=== PATIENT | male | born 1945 | race Caucasian/White ===

== ENCOUNTER 2019-12-10 13:11 | Inpatient (IN) | payer MEDICARE, MEDICAID ==
[~2019-12-10] VITALS: Ht 167.6 cm; Wt 63.0 kg
[~2019-12-10 13:11] MED LIST: ACAR50TA2 PO; ASPI-728 PO; BENA10TA77 PO; CARV12 PO; FERR-89 PO; HYDR25TA84 PO; NIFE30TA91 PO; OMEP10 PO; SIMV-260 PO; SITA1TAB6 PO; SUCR1TAB PO; TRIA1CAP13 PO
[2019-12-10] MEDS ORDERED: GABA-533 PO (13:26)
[2019-12-10] MEDS ORDERED: DULA0.75 SQ (13:26)
[2019-12-10] MEDS ORDERED: LISI-662 PO (13:26)
[2019-12-10] MEDS ORDERED: METF-960 PO (13:26)
[2019-12-10] MEDS ORDERED: SODIUM CHLORIDE 0.9% 1,000 ML IV ONE ×2 (13:45→15:45)
[2019-12-10] MEDS ORDERED: GABA-1181 PO (14:10)
[2019-12-10] MEDS ORDERED: TRIA1CAP2 PO (14:10)
[2019-12-10 14:17] LABS: BASOPHILS % (AUTO) 0.1 % (0.0-2.0); EOSINOPHILS % (AUTO) 0 % (1.0-6.0); HEMATOCRIT 33.9 % (41-53); HEMOGLOBIN 11.4 g/dL (13.5-17.5); LYMPHOCYTES # (AUTO) 0.6 K/uL (1.0-4.8); LYMPHOCYTES % (AUTO) 4.3 % (22.0-44.0); MEAN CORPUSCULAR HGB CONC 33.6 G/dL (31.0-37.0); MEAN CORPUSCULAR VOLUME 92 fL (80-100); MONOCYTES # (AUTO) 0.6 K/uL (0.1-1.0); MONOCYTES % (AUTO) 4.2 % (2.0-9.0); NEUTROPHILS # (AUTO) 12.3 K/uL (1.8-7.7); PLATELET COUNT (AUTO) 308 K/uL (150-450); RED BLOOD CELL COUNT(AUTO) 3.68 MIL/uL (4.50-5.90); RED CELL DISTRIBUTION WIDTH 14.5 % (11.5-14.5)
[2019-12-10 14:20] LABS: NEUTROPHILS % (AUTO) 91.4 % (40.0-70.0)
[2019-12-10] MEDS ORDERED: FAMOTIDINE 10 MG/ML 2 ML VIAL IVP ONE (14:30)
[2019-12-10] MEDS ORDERED: ONDANSETRON HCL 4 MG/2 ML VIAL IVP ONE (14:30)
[2019-12-10 14:35] LABS: ALBUMIN 2.8 g/dL (3.4-5.0); BILIRUBIN,TOTAL 1.3 mg/dL (0.1-1.0); CALCIUM, TOTAL 8.4 mg/dL (8.8-10.5); CREATININE 3.82 mg/dL (0.60-1.30); POTASSIUM 4.5 mmol/L (3.5-5.1); TOTAL PROTEIN, SERUM 7.2 g/dL (6.4-8.2)
[2019-12-10] MEDS ORDERED: MetroNIDAZOLE 500 MG/NACL 100 ML IV ONE (15:00)
[2019-12-10] MEDS ORDERED: ONDANSETRON HCL 4 MG/2 ML VIAL IVP PRN ×2 (15:30→15:45)
[2019-12-10] MEDS ORDERED: BISACODYL 10 MG RECTAL RECTAL SUPPOSITORY PR PRN (15:30)
[2019-12-10] MEDS ORDERED: SODIUM CHLORIDE 3% 500 ML IV ONE (15:30)
[2019-12-10] MEDS ORDERED: MORPHINE SULFATE 2 MG/ML SYRINGE IVP PRN (15:30)
[2019-12-10] MEDS ORDERED: PIPERACILLIN/TAZO 3.375 GM/D5W 50 ML IV ONE (15:30)
[2019-12-10] MEDS ORDERED: MAGNESIUM HYDROXIDE SUSPENSION 30 ML UDCUP PO PRN (15:30)
[2019-12-10] MEDS ORDERED: ACETAMINOPHEN 325 MG TABLET PO PRN ×2 (15:30→15:45)
[2019-12-10] MEDS ORDERED: ZOLPIDEM TARTRATE 5 MG TABLET PO PRN (15:30)
[2019-12-10] MEDS ORDERED: DEXTROSE 50%-WATER 25 GM/50 ML SYRINGE IVP PRN (15:30)
[2019-12-10] MEDS ORDERED: HYDROCODONE/ACETAMINOPHEN 5-325 MG TABLET PO PRN (15:30)
[2019-12-10] MEDS ORDERED: 0.9% SODIUM CHLORIDE 10 ML SYRINGE IVP PRN (15:45)
[2019-12-10 16:31] LABS: ALBUMIN 2.5 g/dL (3.4-5.0); BILIRUBIN,TOTAL 1.4 mg/dL (0.1-1.0); CALCIUM, TOTAL 7.8 mg/dL (8.8-10.5); CREATININE 3.64 mg/dL (0.60-1.30); POTASSIUM 4.1 mmol/L (3.5-5.1); TOTAL PROTEIN, SERUM 6.2 g/dL (6.4-8.2)
[2019-12-10] MEDS ORDERED: VANCOMYCIN HCL 1 GM/D5% WATER 200 ML IV ONE (17:00)
[2019-12-10] MEDS: HEPARIN SODIUM,PORCINE 5,000 UNITS/ML VIAL SQ SCH (17:51)
[2019-12-10] MEDS ORDERED: SODIUM CHLORIDE 0.9% 500 ML IV ONE (18:15)
[2019-12-10] MEDS: DOCUSATE SODIUM 100 MG CAPSULE PO SCH (21:00)
[2019-12-10 21:49] LABS: ALBUMIN 2.2 g/dL (3.4-5.0); BILIRUBIN,TOTAL 1.1 mg/dL (0.1-1.0); CALCIUM, TOTAL 7.2 mg/dL (8.8-10.5); CREATININE 3.33 mg/dL (0.60-1.30); POTASSIUM 3.8 mmol/L (3.5-5.1); TOTAL PROTEIN, SERUM 5.5 g/dL (6.4-8.2)
[2019-12-11] MEDS: PIPERACILLIN SODIUM/TAZOBACTAM 2.25 GM in DEXTROSE 5%-WATER 50 ML IV SCH ×3 (02:58→23:16)
[2019-12-11 06:31] LABS: BASOPHILS % (AUTO) 0.2 % (0.0-2.0); EOSINOPHILS % (AUTO) 0.6 % (1.0-6.0); HEMATOCRIT 31.8 % (41-53); LYMPHOCYTES # (AUTO) 0.5 K/uL (1.0-4.8); LYMPHOCYTES % (AUTO) 6.9 % (22.0-44.0); MEAN CORPUSCULAR HEMOGLOBIN 31.8 pg (26.0-34.0); MEAN CORPUSCULAR HGB CONC 34.5 G/dL (31.0-37.0); MEAN CORPUSCULAR VOLUME 92 fL (80-100); MONOCYTES # (AUTO) 0.6 K/uL (0.1-1.0); MONOCYTES % (AUTO) 7.7 % (2.0-9.0); NEUTROPHILS # (AUTO) 6.4 K/uL (1.8-7.7); NEUTROPHILS % (AUTO) 84.6 % (40.0-70.0); PLATELET COUNT (AUTO) 256 K/uL (150-450); RED BLOOD CELL COUNT(AUTO) 3.45 MIL/uL (4.50-5.90); RED CELL DISTRIBUTION WIDTH 14.5 % (11.5-14.5)
[2019-12-11 06:34] LABS: GLUCOSE,POINT OF CARE 136 MG/DL (70-110)
[2019-12-11 06:42] LABS: CALCIUM, TOTAL 7.4 mg/dL (8.8-10.5); CREATININE 2.89 mg/dL (0.60-1.30); POTASSIUM 3.8 mmol/L (3.5-5.1)
[2019-12-11] MEDS: HEPARIN SODIUM,PORCINE 5,000 UNITS/ML VIAL SQ SCH ×2 (08:11)
[2019-12-11] MEDS: SIMVASTATIN 20 MG TABLET PO SCH (09:00)
[2019-12-11] MEDS: PANTOPRAZOLE SODIUM 40 MG DR TABLET PO SCH (09:00)
[2019-12-11] MEDS: DOCUSATE SODIUM 100 MG CAPSULE PO SCH ×2 (09:00→21:18)
[2019-12-11] MEDS: ASPIRIN 81 MG CHEWABLE TABLET PO SCH (09:00)
[2019-12-11 11:39] LABS: CREATININE 2.77 mg/dL (0.60-1.30); POTASSIUM 4.4 mmol/L (3.5-5.1)
[2019-12-11] MEDS ORDERED: SODIUM CHLORIDE 0.9% 1,000 ML ONE (13:08)
[2019-12-11] MEDS ORDERED: IOHEXOL 240 MG/ML 20 ML VIAL ONE (16:10)
[2019-12-11] MEDS ORDERED: FentaNYL CITRATE-PF 100 MCG/2 ML VIAL ONE (16:23)
[2019-12-11] MEDS: FentaNYL CITRATE-PF 100 MCG/2 ML VIAL IVP PRN ×2 (16:25→16:39)
[2019-12-11 19:05] VITALS: BP 136/67
[2019-12-11 20:55] VITALS: BP 143/69
[2019-12-11] MEDS: INSULIN LISPRO 100 UNITS/ML SQ PRN (21:30)
[2019-12-11 22:08] LABS: CALCIUM, TOTAL 8.4 mg/dL (8.8-10.5); CREATININE 2.37 mg/dL (0.60-1.30); POTASSIUM 4.2 mmol/L (3.5-5.1)
[2019-12-11] MEDS ORDERED: SODIUM CHLORIDE 0.9% 100 ML ONE (23:02)
[2019-12-12] VITALS (7 sets, daily range): BP systolic 111–197; BP diastolic 60–86
[2019-12-12] MEDS: PIPERACILLIN SODIUM/TAZOBACTAM 2.25 GM in DEXTROSE 5%-WATER 50 ML IV SCH ×4 (03:44→21:04)
[2019-12-12] MEDS ORDERED: FentaNYL CITRATE-PF 100 MCG/2 ML VIAL IVP ONE ×2 (06:34→12:00)
[2019-12-12] MEDS ORDERED: EPHEDrine SULFATE 50 MG/ML VIAL IM ONE (06:34)
[2019-12-12] MEDS ORDERED: LIDOCAINE/PF 2% 5 ML VIAL IM ONE (06:34)
[2019-12-12] MEDS ORDERED: ONDANSETRON HCL 4 MG/2 ML VIAL IVP ONE (06:34)
[2019-12-12] MEDS ORDERED: 0.9% SODIUM CHLORIDE 10 ML VIAL IVP ONE (06:34)
[2019-12-12] MEDS ORDERED: SUCCINYLCHOLINE CHLORIDE 20 MG/ML 10 ML VIAL IVP ONE ×2 (06:34→12:00)
[2019-12-12] MEDS ORDERED: PROPOFOL 1% 20 ML VIAL IVP ONE ×2 (06:34→12:00)
[2019-12-12 06:50] LABS: BASOPHILS % (AUTO) 0.5 % (0.0-2.0); EOSINOPHILS % (AUTO) 2.4 % (1.0-6.0); HEMATOCRIT 33.1 % (41-53); LYMPHOCYTES # (AUTO) 0.8 K/uL (1.0-4.8); LYMPHOCYTES % (AUTO) 9.4 % (22.0-44.0); MEAN CORPUSCULAR HEMOGLOBIN 30.7 pg (26.0-34.0); MEAN CORPUSCULAR HGB CONC 33.1 G/dL (31.0-37.0); MEAN CORPUSCULAR VOLUME 93 fL (80-100); MONOCYTES # (AUTO) 0.8 K/uL (0.1-1.0); MONOCYTES % (AUTO) 9.3 % (2.0-9.0); NEUTROPHILS # (AUTO) 6.5 K/uL (1.8-7.7); NEUTROPHILS % (AUTO) 78.4 % (40.0-70.0); PLATELET COUNT (AUTO) 318 K/uL (150-450); RED BLOOD CELL COUNT(AUTO) 3.56 MIL/uL (4.50-5.90); RED CELL DISTRIBUTION WIDTH 14.6 % (11.5-14.5)
[2019-12-12 06:58] LABS: CALCIUM, TOTAL 8.4 mg/dL (8.8-10.5); CREATININE 1.91 mg/dL (0.60-1.30)
[2019-12-12] MEDS: HEPARIN SODIUM,PORCINE 5,000 UNITS/ML VIAL SQ SCH (08:00)
[2019-12-12 08:12] LABS: GLUCOMETER DEV NAME(LOC) 5S.1; GLUCOSE,POINT OF CARE 226 MG/DL (70-110)
[2019-12-12] MEDS ORDERED: SODIUM CHLORIDE 0.9% 1,000 ML IV ONE (08:50)
[2019-12-12] MEDS: PANTOPRAZOLE SODIUM 40 MG DR TABLET PO SCH (09:00)
[2019-12-12] MEDS: ASPIRIN 81 MG CHEWABLE TABLET PO SCH (09:00)
[2019-12-12] MEDS: SIMVASTATIN 20 MG TABLET PO SCH (09:00)
[2019-12-12] MEDS: DOCUSATE SODIUM 100 MG CAPSULE PO SCH ×2 (09:00→21:00)
[2019-12-12] MEDS ORDERED: ACETAMINOPHEN 1000 MG/ISO-OSM 100 ML IV ONE (10:12)
[2019-12-12] MEDS ORDERED: HYDROmorphone 2 MG/ML SYRINGE IVP PRN ×2 (10:45)
[2019-12-12] MEDS ORDERED: ONDANSETRON HCL 4 MG/2 ML VIAL IVP PRN (10:45)
[2019-12-12] MEDS ORDERED: HYDROCODONE/ACETAMINOPHEN 5-325 MG TABLET PO PRN (11:45)
[2019-12-12] MEDS ORDERED: MORPHINE SULFATE 4 MG/ML SYRINGE IVP PRN (11:45)
[2019-12-12] MEDS ORDERED: BUPIVACAINE 0.25%/EPI 1:200,000/PF 10 ML VIAL ONE (11:47)
[2019-12-12] MEDS ORDERED: HYDROmorphone 2 MG/ML SYRINGE ONE (11:51)
[2019-12-12] MEDS: HYDROmorphone 2 MG/ML SYRINGE IVP PRN ×5 (11:56→21:04)
[2019-12-12] MEDS ORDERED: LIDOCAINE/PF 2% 5 ML VIAL INJ ONE (12:00)
[2019-12-12] MEDS ORDERED: MIDAZOLAM HCL 2 MG/2 ML VIAL IVP ONE (12:00)
[2019-12-12] MEDS ORDERED: ROCURONIUM BROMIDE 10 MG/ML 5 ML VIAL IVP ONE (12:00)
[2019-12-12] MEDS: DEXTROSE 5%-0.9% SODIUM CHL 1,000 ML IV SCH (13:31)
[2019-12-12 16:19] LABS: CALCIUM, TOTAL 8.4 mg/dL (8.8-10.5); CREATININE 1.8 mg/dL (0.60-1.30); POTASSIUM 4.6 mmol/L (3.5-5.1)
[2019-12-12] MEDS: INSULIN LISPRO 100 UNITS/ML SQ PRN (21:09)
[2019-12-12 22:17] LABS: CALCIUM, TOTAL 8.2 mg/dL (8.8-10.5); CREATININE 1.8 mg/dL (0.60-1.30); POTASSIUM 4.5 mmol/L (3.5-5.1)
[2019-12-12] MEDS ORDERED: AmLODIPine BESYLATE 10 MG TABLET PO ONE (23:45)
[2019-12-13] MEDS: PIPERACILLIN SODIUM/TAZOBACTAM 2.25 GM in DEXTROSE 5%-WATER 50 ML IV SCH ×4 (01:20→20:56)
[2019-12-13] MEDS: DEXTROSE 5%-0.9% SODIUM CHL 1,000 ML IV SCH ×2 (01:20→09:17)
[2019-12-13] MEDS: CloNIDine HCL 0.1 MG TABLET PO PRN (01:20)
[2019-12-13] MEDS: HYDROmorphone 2 MG/ML SYRINGE IVP PRN ×4 (01:20→20:56)
[2019-12-13 04:09] VITALS: BP 146/79
[2019-12-13] MEDS: INSULIN LISPRO 100 UNITS/ML SQ PRN ×4 (06:43→21:03)
[2019-12-13 06:50] LABS: GLUCOMETER DEV NAME(LOC) 5S.2A; GLUCOSE,POINT OF CARE 303 MG/DL (70-110)
[2019-12-13 06:50] LABS: GLUCOMETER DEV NAME(LOC) 5S.2A; GLUCOSE,POINT OF CARE 226 MG/DL (70-110)
[2019-12-13 07:32] VITALS: BP 154/94
[2019-12-13] MEDS: ASPIRIN 81 MG CHEWABLE TABLET PO SCH (09:16)
[2019-12-13] MEDS: SIMVASTATIN 20 MG TABLET PO SCH (09:16)
[2019-12-13] MEDS: DOCUSATE SODIUM 100 MG CAPSULE PO SCH ×2 (09:16→20:56)
[2019-12-13] MEDS: HydrALAZINE HCL 25 MG TABLET PO SCH ×2 (09:16→20:56)
[2019-12-13] MEDS: PANTOPRAZOLE SODIUM 40 MG DR TABLET PO SCH (09:16)
[2019-12-13] MEDS: CARVEDILOL 12.5 MG TABLET PO SCH ×2 (09:16→20:56)
[2019-12-13 09:25] LABS: BASOPHILS % (AUTO) 0.6 % (0.0-2.0); EOSINOPHILS % (AUTO) 1.6 % (1.0-6.0); HEMATOCRIT 34.5 % (41-53); HEMOGLOBIN 11.4 g/dL (13.5-17.5); LYMPHOCYTES # (AUTO) 0.9 K/uL (1.0-4.8); LYMPHOCYTES % (AUTO) 11.1 % (22.0-44.0); MEAN CORPUSCULAR HEMOGLOBIN 30.8 pg (26.0-34.0); MEAN CORPUSCULAR HGB CONC 32.9 G/dL (31.0-37.0); MEAN CORPUSCULAR VOLUME 94 fL (80-100); MONOCYTES # (AUTO) 0.8 K/uL (0.1-1.0); MONOCYTES % (AUTO) 10.3 % (2.0-9.0); NEUTROPHILS # (AUTO) 6.2 K/uL (1.8-7.7); NEUTROPHILS % (AUTO) 76.4 % (40.0-70.0); PLATELET COUNT (AUTO) 364 K/uL (150-450); RED BLOOD CELL COUNT(AUTO) 3.68 MIL/uL (4.50-5.90); RED CELL DISTRIBUTION WIDTH 14.7 % (11.5-14.5)
[2019-12-13 09:52] LABS: CALCIUM, TOTAL 8.5 mg/dL (8.8-10.5); CREATININE 1.71 mg/dL (0.60-1.30); POTASSIUM 4.2 mmol/L (3.5-5.1)
[2019-12-13 11:05] VITALS: BP 148/76
[2019-12-13 13:40] LABS: GLUCOMETER DEV NAME(LOC) 5N.1; GLUCOSE,POINT OF CARE 303 MG/DL (70-110)
[2019-12-13 15:42] VITALS: BP_SYST 144; BP_SYST 152; BP_DIAS 82
[2019-12-13 17:40] LABS: GLUCOMETER DEV NAME(LOC) 5N.1; GLUCOSE,POINT OF CARE 208 MG/DL (70-110)
[2019-12-13 19:53] VITALS: BP 158/82
[2019-12-13 21:07] LABS: GLUCOMETER DEV NAME(LOC) 5N.1; GLUCOSE,POINT OF CARE 286 MG/DL (70-110)
[2019-12-14 00:07] VITALS: BP 145/85
[2019-12-14 04:32] VITALS: BP 182/82
[2019-12-14] MEDS: HYDROmorphone 2 MG/ML SYRINGE IVP PRN (04:35)
[2019-12-14] MEDS: CloNIDine HCL 0.1 MG TABLET PO PRN (04:35)
[2019-12-14] MEDS: PIPERACILLIN SODIUM/TAZOBACTAM 2.25 GM in DEXTROSE 5%-WATER 50 ML IV SCH ×4 (04:35→21:14)
[2019-12-14] MEDS: INSULIN LISPRO 100 UNITS/ML SQ PRN ×4 (05:58→21:26)
[2019-12-14 07:59] VITALS: BP 174/84
[2019-12-14 08:12] LABS: ALBUMIN 2.2 g/dL (3.4-5.0); BILIRUBIN,TOTAL 0.5 mg/dL (0.1-1.0); CALCIUM, TOTAL 8.2 mg/dL (8.8-10.5); CREATININE 1.36 mg/dL (0.60-1.30); POTASSIUM 4.2 mmol/L (3.5-5.1); TOTAL PROTEIN, SERUM 6.2 g/dL (6.4-8.2)
[2019-12-14] MEDS: CARVEDILOL 12.5 MG TABLET PO SCH ×2 (08:25→21:14)
[2019-12-14] MEDS: HydrALAZINE HCL 25 MG TABLET PO SCH (08:25)
[2019-12-14] MEDS: ASPIRIN 81 MG CHEWABLE TABLET PO SCH (08:25)
[2019-12-14] MEDS: SIMVASTATIN 20 MG TABLET PO SCH (08:25)
[2019-12-14] MEDS: DOCUSATE SODIUM 100 MG CAPSULE PO SCH ×2 (08:25→21:14)
[2019-12-14] MEDS: PANTOPRAZOLE SODIUM 40 MG DR TABLET PO SCH (08:26)
[2019-12-14 08:33] LABS: BASOPHILS % (AUTO) 0.4 % (0.0-2.0); EOSINOPHILS % (AUTO) 3.4 % (1.0-6.0); HEMATOCRIT 30.4 % (41-53); HEMOGLOBIN 10.3 g/dL (13.5-17.5); LYMPHOCYTES # (AUTO) 0.9 K/uL (1.0-4.8); LYMPHOCYTES % (AUTO) 11.6 % (22.0-44.0); MEAN CORPUSCULAR HEMOGLOBIN 31.4 pg (26.0-34.0); MEAN CORPUSCULAR HGB CONC 33.8 G/dL (31.0-37.0); MEAN CORPUSCULAR VOLUME 93 fL (80-100); MONOCYTES # (AUTO) 0.8 K/uL (0.1-1.0); MONOCYTES % (AUTO) 9.8 % (2.0-9.0); NEUTROPHILS # (AUTO) 6.1 K/uL (1.8-7.7); NEUTROPHILS % (AUTO) 74.8 % (40.0-70.0); PLATELET COUNT (AUTO) 289 K/uL (150-450); RED BLOOD CELL COUNT(AUTO) 3.27 MIL/uL (4.50-5.90); RED CELL DISTRIBUTION WIDTH 14.4 % (11.5-14.5)
[2019-12-14 11:33] VITALS: BP 173/73
[2019-12-14 12:08] LABS: GLUCOMETER DEV NAME(LOC) 5S.1; GLUCOSE,POINT OF CARE 225 MG/DL (70-110)
[2019-12-14 12:08] LABS: GLUCOMETER DEV NAME(LOC) 5S.2A; GLUCOSE,POINT OF CARE 147 MG/DL (70-110)
[2019-12-14] MEDS ORDERED: HydrALAZINE HCL 25 MG TABLET PO ONE (13:30)
[2019-12-14 16:09] VITALS: BP 155/73
[2019-12-14] MEDS: BIMATOPROST 0.01% 2.5 ML OPHTHALMIC SOLUTION OU SCH (17:37)
[2019-12-14 19:45] VITALS: BP 147/73
[2019-12-14] MEDS: GuaiFENesin SR 600 MG ER TABLET PO SCH (21:13)
[2019-12-14] MEDS: HydrALAZINE HCL 50 MG TABLET PO SCH (21:18)
[2019-12-15 00:10] VITALS: BP 127/91
[2019-12-15] MEDS: PIPERACILLIN SODIUM/TAZOBACTAM 2.25 GM in DEXTROSE 5%-WATER 50 ML IV SCH ×2 (03:45→08:25)
[2019-12-15 04:15] VITALS: BP 148/64
[2019-12-15 05:30] LABS: GLUCOMETER DEV NAME(LOC) 5S.2A; GLUCOSE,POINT OF CARE 151 MG/DL (70-110)
[2019-12-15 05:30] LABS: GLUCOMETER DEV NAME(LOC) 5S.2A; GLUCOSE,POINT OF CARE 198 MG/DL (70-110)
[2019-12-15 07:15] LABS: GLUCOMETER DEV NAME(LOC) 5S.2A; GLUCOSE,POINT OF CARE 141 MG/DL (70-110)
[2019-12-15 07:22] LABS: BASOPHILS % (AUTO) 0.5 % (0.0-2.0); EOSINOPHILS % (AUTO) 4.1 % (1.0-6.0); HEMATOCRIT 30.8 % (41-53); HEMOGLOBIN 10.5 g/dL (13.5-17.5); LYMPHOCYTES % (AUTO) 13.4 % (22.0-44.0); MEAN CORPUSCULAR HEMOGLOBIN 31.3 pg (26.0-34.0); MEAN CORPUSCULAR HGB CONC 34.1 G/dL (31.0-37.0); MEAN CORPUSCULAR VOLUME 92 fL (80-100); MONOCYTES # (AUTO) 0.7 K/uL (0.1-1.0); MONOCYTES % (AUTO) 10.1 % (2.0-9.0); NEUTROPHILS # (AUTO) 5.1 K/uL (1.8-7.7); NEUTROPHILS % (AUTO) 71.9 % (40.0-70.0); PLATELET COUNT (AUTO) 302 K/uL (150-450); RED BLOOD CELL COUNT(AUTO) 3.35 MIL/uL (4.50-5.90); RED CELL DISTRIBUTION WIDTH 14.3 % (11.5-14.5)
[2019-12-15 07:29] LABS: CALCIUM, TOTAL 8.4 mg/dL (8.8-10.5); CREATININE 1.38 mg/dL (0.60-1.30)
[2019-12-15 07:45] VITALS: BP 158/78
[2019-12-15] MEDS: GuaiFENesin SR 600 MG ER TABLET PO SCH (08:24)
[2019-12-15] MEDS: ASPIRIN 81 MG CHEWABLE TABLET PO SCH (08:25)
[2019-12-15] MEDS: SIMVASTATIN 20 MG TABLET PO SCH (08:25)
[2019-12-15] MEDS: HydrALAZINE HCL 50 MG TABLET PO SCH (08:25)
[2019-12-15] MEDS: CARVEDILOL 12.5 MG TABLET PO SCH (08:25)
[2019-12-15] MEDS: DOCUSATE SODIUM 100 MG CAPSULE PO SCH (08:25)
[2019-12-15] MEDS: PANTOPRAZOLE SODIUM 40 MG DR TABLET PO SCH (08:25)
[2019-12-15] MEDS: BIMATOPROST 0.01% 2.5 ML OPHTHALMIC SOLUTION OU SCH (08:26)
[2019-12-15 10:37] VITALS: BP 151/63
[2019-12-15] MEDS: INSULIN LISPRO 100 UNITS/ML SQ PRN (12:13)
[2019-12-15] MEDS ORDERED: HYDR-4119 PO (14:46)
[2019-12-15] MEDS ORDERED: DOCU-275 PO (14:47)
[2019-12-15] MEDS ORDERED: AMOX1TAB16 PO (14:49)
[2019-12-15] MEDS ORDERED: METR500 PO (14:49)
[2019-12-15 17:18] LABS: GLUCOMETER DEV NAME(LOC) 5S.2A; GLUCOSE,POINT OF CARE 267 MG/DL (70-110)
== END 2019-12-15 15:43 | disposition home or self-care (01) | DRG 853 ==
LOC: EMS 13:20 → 5S 15:31 → UNDOADMIN 15:31 → 5S 12-11 14:00
PROVIDERS: ADMIT Internal Medicine; ATTEND Internal Medicine
PROC: 0FC98ZZ Extirpation of Matter from Common Bile Duct, Via Natural or Artificial Opening Endoscopic (ICD-10-PCS; principal; 2019-12-11 15:30)
PROC: BF101ZZ Fluoroscopy of Bile Ducts using Low Osmolar Contrast (ICD-10-PCS; 2019-12-12)
PROC: 0FT40ZZ Resection of Gallbladder, Open Approach (ICD-10-PCS; 2019-12-12)
DX: A41.9 Sepsis, unspecified organism (principal); E43 Unspecified severe protein-calorie malnutrition; N17.0 Acute kidney failure with tubular necrosis; K80.65 Calculus of gallbladder and bile duct with chronic cholecystitis with obstruction; E87.1 Hypo-osmolality and hyponatremia; K21.9 Gastro-esophageal reflux disease without esophagitis; E55.9 Vitamin D deficiency, unspecified; E78.5 Hyperlipidemia, unspecified; M19.90 Unspecified osteoarthritis, unspecified site; N40.0 Benign prostatic hyperplasia without lower urinary tract symptoms; Z79.4 Long term (current) use of insulin; Z79.84 Long term (current) use of oral hypoglycemic drugs; N18.3 Chronic kidney disease, stage 3 (moderate); I12.9 Hypertensive chronic kidney disease with stage 1 through stage 4 chronic kidney disease, or unspecified chronic kidney disease; E11.22 Type 2 diabetes mellitus with diabetic chronic kidney disease; E86.1 Hypovolemia; Z68.22 Body mass index [BMI] 22.0-22.9, adult; E11.319 Type 2 diabetes mellitus with unspecified diabetic retinopathy without macular edema; D63.8 Anemia in other chronic diseases classified elsewhere; Z98.49 Cataract extraction status, unspecified eye; I25.10 Atherosclerotic heart disease of native coronary artery without angina pectoris; E78.00 Pure hypercholesterolemia, unspecified; L29.9 Pruritus, unspecified; Z20.828 Contact with and (suspected) exposure to other viral communicable diseases
CPT/HCPCS: 74181; 76705; 83605; 83930; 88304; 93005; 99291; G0378; J0131; J0330; J1170; J1644; J2250; J2405; J2543; J2704; J3010; J3370; J3490; J7030; J7040; J7042; J7050; J7060; Q9966

== ENCOUNTER 2021-03-02 11:00 | Emergency (ER) | payer MEDICARE, MEDICAID ==
[~2021-03-02] VITALS: Ht 165.1 cm; Wt 70.5 kg
[~2021-03-02 11:00] MED LIST changes: +AMOX1TAB16 PO; +ASPI-1450 PO; -ASPI-728 PO; -BENA10TA77 PO; +DOCU-270 PO; +DULA0.75 SQ; +GABA-1181 PO; +HYDR-4119 PO; +METR500 PO; -NIFE30TA91 PO; -OMEP10 PO; -SITA1TAB6 PO; -TRIA1CAP13 PO
[2021-03-02 14:00] VITALS: BP 172/89
== END 2021-03-02 14:19 | disposition home or self-care (01) ==
LOC: EMS 11:05
DX: H60.91 Unspecified otitis externa, right ear (principal); I25.10 Atherosclerotic heart disease of native coronary artery without angina pectoris; E11.9 Type 2 diabetes mellitus without complications; E78.00 Pure hypercholesterolemia, unspecified; I10 Essential (primary) hypertension; Z79.899 Other long term (current) drug therapy
CPT/HCPCS: 99283